=== PATIENT | female | born 1960 | race Caucasian/White ===

== ENCOUNTER → 2023-12-21 | Outpatient (CLI) | payer MEDICAID ==
[~2023-12-21] MED LIST: FLU MED; HCTZ; ZITHROMAX
== END | disposition home or self-care (01) ==
LOC: Rad HDHVI 12:56
PROVIDERS: ATTEND Internal Medicine Cardiovascular Disease
DX: Z01.818 Encounter for other preprocedural examination (principal)
CPT/HCPCS: 93306

== ENCOUNTER → 2024-01-04 | Outpatient (CLI) | payer MEDICAID ==
[~2024-01-04] VITALS: Ht 152.4 cm; Wt 136.1 kg
[~2024-01-04] MED LIST changes: +ADENOSINE 114 MG in GIVE UN-DILUTED 0 ML IV ONE; +ADENOSINE 90 MG/30 ML INJ IV ONE
== END | disposition home or self-care (01) ==
LOC: Rad HDHVI 08:06
PROVIDERS: ATTEND Internal Medicine Cardiovascular Disease
DX: Z01.810 Encounter for preprocedural cardiovascular examination (principal); E78.00 Pure hypercholesterolemia, unspecified; R07.89 Other chest pain; I11.0 Hypertensive heart disease with heart failure; I50.33 Acute on chronic diastolic (congestive) heart failure; R06.02 Shortness of breath
CPT/HCPCS: 78452; 93005; 96374; 96375; A9500; J0153

== ENCOUNTER 2024-02-05 12:01 | Day surgery (SDC) | payer MEDICAID ==
[2024-02-04 14:49] LABS: Basophils # (auto) 0 10 ^3/uL (0-0.2); Basophils % (auto) 0.5 % (0.0-2.0); Eosinophils # (auto) 0.1 10 ^3/uL (0-0.8); Eosinophils % (auto) 1.7 % (0.0-7.0); Hematocrit 50.6 % (36.0-46.0); Hemoglobin 16.7 g/dL (12.2-16.2); Lymphocytes % (auto) 24.3 % (10.0-50.0); Mean Corpuscular Hemoglobin 27.7 pg (28.0-32.0); Mean Corpuscular Volume 83.9 fL (80.0-100.0); Monocytes # (auto) 0.4 10 ^3/uL (0-1.3); Monocytes % (auto) 5.1 % (0.0-12.0); Neutrophils # (auto) 5.7 10 ^3/uL (1.6-8.6); Neutrophils % (auto) 68.4 % (37.0-80.0); Nucleated Red Blood Cells % 0.2 %; Platelet Count (auto) 150 10^3/uL (140-450); Red Blood Cells 6.03 10^6/uL (4.0-5.20); Red Cell Distribution Width 14.5 % (11.8-14.3); White Blood Cell 8.3 10^3/uL (4.4-10.8)
[2024-02-04 15:03] LABS: INR 1.07 (0.9-1.15); Partial Thromboplastin Time 25.9 SEC (24.5-34.5); Prothrombin Time 11.3 sec (9.3-11.8)
[2024-02-04 15:35] LABS: Chloride 107 mmol/L (98-107); Potassium 4.5 mmol/L (3.5-5.1); Sodium 141 mmol/L (136-145)
[2024-02-04 15:36] LABS: Anion Gap 4 (5-15); Calcium 10.3 mg/dL (8.7-10.4); Carbon Dioxide 30 mmol/L (20-31)
[2024-02-04 15:41] LABS: BUN/Creatinine Ratio 13.8 (10.0-20.0); Blood Urea Nitrogen 13 mg/dL (9-23); Glucose 95 mg/dL (74-106)
[~2024-02-05] VITALS: Ht 152.4 cm; Wt 135.2 kg
[~2024-02-05 12:01] MED LIST changes: -ADENOSINE 114 MG in GIVE UN-DILUTED 0 ML IV ONE; -ADENOSINE 90 MG/30 ML INJ IV ONE; +ASPI-543 PO; +ATOR20TA50 PO; +BUPR75TA96 PO; +CETI10TA2 PO; +CITA-77 PO; +CYCL-839 PO; +DICL1GEL73 TD; +FAMO40TA7 PO; -FLU MED; -HCTZ; +LISI10TA34 PO; +POM; -ZITHROMAX
[2024-02-05] MEDS ORDERED: VERAPAMIL 2.5MG/ML INJ 2ML VIAL IV ONE (13:18)
[2024-02-05] MEDS ORDERED: ANGIOMAX 250 MG VIAL IV ONE (13:18)
[2024-02-05] MEDS ORDERED: LIDOCAINE 2%HCL (LOCAL ANESTH.) INJ 20ML MDV ONE (13:19)
[2024-02-05] MEDS ORDERED: SODIUM CHL 0.9% 0 ML ONE (13:19)
[2024-02-05] MEDS ORDERED: fentaNYL CITRATE 100 MCG/2 ML VL ONE (13:19)
[2024-02-05] MEDS ORDERED: HEPARIN SODIUM (PORCINE) 5000 UNITS/ML 1ML VIAL ONE (13:19)
[2024-02-05] MEDS ORDERED: MIDAZOLAM HCL 2MG/2ML 2ml VIAL (1mg/ml) ONE (13:19)
--- NOTE | 2024-02-05 15:07 | DVHHP ---
ADMIT DATE: 02/05/2024 HISTORY OF PRESENT ILLNESS: The patient with history of hypertension, hyperlipidemia, strong family history of coronary artery disease, history of COPD. Currently, the patient is a smoker, smokes approximately half a pack to a pack a day. Again, I stressed the need for her to discontinue smoking. She is morbidly obese. Weight loss should be encouraged. The patient; however, on stress test showed anterior wall fixed defect and mild apical reversibility. An echocardiogram showed the patient to have diminished left ventricular ejection fraction. Because of the presentation, it was felt that the patient should undergo coronary angiography to define coronary anatomy. CURRENT MEDICATIONS: Atorvastatin, aspirin and lisinopril. REVIEW OF SYSTEMS: She denies any cardiac arrest. No history of diabetes. No history of renal failure. No history of heart failure, even though this is an incidental finding because the screening test was done for preop clearance. PHYSICAL EXAMINATION: VITAL SIGNS: Blood pressure is 140/82, pulse of 70, O2 saturation 98% on room air. HEENT: Pupils are reactive. Funduscopic exam is benign. Sclerae anicteric. Oral mucosa moist. Posterior pharynx without any exudates. NECK: JVD about 2 cm above the angle of Jeevan. Unable to appreciate adenopathy. PULMONARY: Distant breath sounds. CARDIOVASCULAR: Regular rate, difficult to appreciate a PMI. ABDOMEN: Obese. Unable to appreciate any organomegaly. Stool guaiac is negative. NEUROLOGIC: The patient is intact. EXTREMITIES: 2+ pitting edema. ASSESSMENT AND PLAN: Thus, the patient appears to have coronary artery disease, strong family history of coronary artery disease. Risk factors include obesity, hypertension, hyperlipidemia and strong family history and tobacco use as well. Therefore, the patient is to undergo coronary angiography to define coronary anatomy. Further recommendations after the angiogram. Frandy Whitfield MD SA/MAMADOU TID: [id number] RECEIPT: [id number]
--- NOTE | 2024-02-05 15:12 | DVHOP ---
DATE OF SURGERY: 02/05/2024 PROCEDURES PERFORMED: Selective left and right coronary angiography, ventriculogram, right iliac angiography, and ventriculogram. There were no complications. The patient tolerated the procedure well. Conscious sedation was given. We accessed the right radial artery because the patient is morbidly obese. Therefore, groin access would have been difficult and higher complication rate. DESCRIPTION OF PROCEDURE: The patient was prepped and draped in a sterile condition. 1% Xylocaine used to anesthetize the right wrist. Using micropuncture needle, right radial artery was cannulated via the Seldinger technique. Glidewire then appropriately positioned. Then, a 6-Libyan sheath was introduced into the right radial artery. The cocktail was used including verapamil, nitroglycerin and 2000 units of heparin. Following that, using a Greenwich diagnostic 5-Libyan Green[place] catheter, we were able to cannulate the right and left coronary arteries. Using 6-Libyan pigtail catheter, ventriculogram was done. There were no complications. The patient tolerated the procedure well. RESULTS: * The patient's left main short, but patent. * Left anterior descending artery was occluded in the mid portion post first diagonal artery. * Circumflex artery nondominant vessel without any flow restrictive lesion. * Right coronary artery large, dominant vessel, bridging collaterals to the left. Left ventricular ejection fraction is diminished and EF around 35-40% with an LVEDP of 20 mmHg with no gradient across the aortic valve. 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 At this time, I do not believe any intervention is required since the patient is stable and having bridging collaterals. It is a [employer]. Therefore, at this time, I will defer because of excessive morbidity associated with any intervention in this patient. Medical management should be initiated and the patient will have a viability study whether there is any reversible defect in the anterior territory that may benefit from revascularization. We will continue to follow the patient. Frandy Whitfield MD SA/JANEEN TID: [id number] RECEIPT: [id number]
--- NOTE | 2024-02-05 19:53 | DVHDS ---
DATE OF DISCHARGE: 02/05/2024 DISCHARGE DIAGNOSES: The patient has: * Ischemic cardiomyopathy. * Occluded LAD with bridging collaterals from the right. HOSPITAL COURSE: The patient's EF is around 35%. At this time, weight loss should be encouraged. Maximal medical management should be initiated for heart failure. We will continue to follow the patient. He is not a candidate for revascularization of the LAD since there is no significant reversibility noted, and furthermore, the patient has chronic occlusion with bridging collaterals. 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 Please put in the review . Therefore, the patient will be maintained on dual antiplatelet therapy, aggressive anti-afterload and preload will be initiated. The patient may be considered for AICD implantation. We will continue to monitor the patient. Follow up with me in 1 week. Frandy Whitfield MD SA/INGA/CARMINE/GILLIAN TID: [id number] RECEIPT: [id number]
== END 2024-02-05 15:50 | disposition home or self-care (01) ==
LOC: CATH 12:01
PROVIDERS: ATTEND Internal Medicine Cardiovascular Disease
DX: R94.39 Abnormal result of other cardiovascular function study (principal); I25.82 Chronic total occlusion of coronary artery; R94.31 Abnormal electrocardiogram [ECG] [EKG]; I10 Essential (primary) hypertension; I25.5 Ischemic cardiomyopathy; E78.5 Hyperlipidemia, unspecified; F17.210 Nicotine dependence, cigarettes, uncomplicated; E66.01 Morbid (severe) obesity due to excess calories; Z68.43 Body mass index [BMI] 50.0-59.9, adult; Z79.82 Long term (current) use of aspirin; Z79.899 Other long term (current) drug therapy; Z82.49 Family history of ischemic heart disease and other diseases of the circulatory system; Z82.5 Family history of asthma and other chronic lower respiratory diseases
CPT/HCPCS: 36415; 80048; 85025; 85610; 85730; 93458; C1769; C1894; J1644; J2250; J3010; J7030; Q9967; 99152